=== PATIENT | female | born 2005 | race African-American/Black ===

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

== ENCOUNTER 2023-05-25 14:05 | Outpatient (AMB) | payer BC, SELFPAY ==
[2023-05-25 14:10] VITALS: BP 110/62; PULSE 86; TEMP 36.8; O2SAT 99; BMI 22.3
--- NOTE | 2023-05-25 14:10 | AM.OFFWIN_ITS ---
Intake Vital Signs 05/25/23 14:10 Height 5 ft 4 in Weight 130 lb BMI 22.3 BP 110/62 Blood Pressure Location Rt brachial Position Sitting Pulse 86 Pulse Source Pulse Oximeter Temp 98.3 F Temp Source Temporal Artery Scan Pulse Oximetry (%) 99 Intake Visit Reasons: EP, yellow color in white part of both eyes Intake Note: pt is here for c/o yellow color in white part of eyes, denies vision issues Patient Tobacco Use Status: Never used Tobacco Allergies amoxicillin Allergy (Mild, Verified 05/25/23 14:12) Rash azithromycin Allergy (Mild, Verified 05/25/23 14:13) Abdominal Pain Penicillins Allergy (Mild, Verified 05/25/23 14:12) Rash Do you need a note to return to daycare/school/sports/work: Yes HPI EP, yellow color in white part of both eyes HPI Details 17-[facility] reports yellowish discolored spots in the whites of her eyes. She noticed this yesterday. Denies any eye pain, vision changes, or photophobia. She does wear glasses. Denies any injuries to eyes. Denies any belly pain or abdominal injury. Denies any recent travel. [facility] Social History Patient Tobacco Use Status: Never used Tobacco Review of Systems Const All systems reviewed & are unremarkable except as noted in HPI and below Physical Exam Vital Signs: Last Vital Signs Temp 98.3 F 05/25/23 14:10 Pulse 86 05/25/23 14:10 BP 110/62 05/25/23 14:10 Pulse Ox 99 05/25/23 14:10 BMI result Body Mass Index 22.3 Const General: cooperative, healthy appearing, comfortable and no acute distress HEENT Head: Yes normal to inspection Ears: hearing grossly normal bilaterally Face and sinus: Yes normal facial exam Eyes Alignment and Position: alignment normal and position normal Periorbital: periorbital findings normal Eyelids: Yes eyelids normal Conjunctivae: conjunctivae normal Sclerae: sclerae normal Pupils: Equal, round and reactive pupils present and Pupil accommodation reflex normal EOM: EOMs intact bilaterally Direct Ophthalmoscopy: normal light reflex and no photophobia Neck Neck: Yes no lymphadenopathy Resp Effort & Inspection: normal respiratory effort Skin General skin exam: no rashes or lesions noted, elasticity normal and turgor normal Neuro Cranial nerves: Yes Equal, round and reactive pupils present Extrem General: Yes capillary refill normal and Yes no clubbing, cyanosis or edema Psych Appearance: grossly normal Mental Status: mental status grossly normal Speech and movement: Normal speech and movement present Assessment & Plan Assessment & Plan (1) Discoloration of conjunctiva: Code(s): H11.139 - Conjunctival pigmentations, unspecified eye Plan: Patient reports recent history of yellowish spots on eyes, which sound consistent with pterygium vs pinguecula. I cannot identify any abnormalities on exam today. Eye exam is normal. Patient did show me pictures on her phone and I could see small discoloration she was speaking about. No pain or vision changes. I reassured her of my findings and if this is in fact a pterygium/pinguecula, that she can use lubricating drops, and try to avoid UV light. If she develops any recurrence/worsening of these, or if she develops any eye pain or vision changes, she should return to the clinic for evaluation or follow-up with rig operator. She agrees to plan. Coding Level of Care Code Est Pt Level 3 (31561) Diagnoses Discoloration of conjunctiva H11.139
== END 2023-05-25 15:00 | disposition home or self-care (01) ==
PROVIDERS: Visit Provider Nurse Practitioner Family
DX: H11.139 Conjunctival pigmentations, unspecified eye (principal)
CPT/HCPCS: 99213

== ENCOUNTER 2023-06-03 11:35 | Outpatient (AMB) | payer BC, SELFPAY ==
--- NOTE | 2023-06-03 11:39 | MHC.OFFWIV ---
Intake Vital Signs 06/03/23 11:42 Height 5 ft 4 in Weight 132 lb BMI 22.7 BP 104/60 Blood Pressure Location Rt brachial Position Sitting Pulse 96 Pulse Source Pulse Oximeter Temp 98.9 F Temp Source Oral Pulse Oximetry (%) 98 Oxygen Delivery Method Room Air Intake Visit Reasons: EP Cough, congestion Intake Note: Patient here because she would like to get tested for covid. she states she was exposed to a friend that had covid last week and is now having some sx such as congestion, hard to swallow, headaches and fatigue which have been present for about 2 days. Patient Tobacco Use Status: Never used Tobacco Allergies amoxicillin Allergy (Mild, Verified 06/03/23 11:44) Rash azithromycin Allergy (Mild, Verified 06/03/23 11:44) Abdominal Pain Penicillins Allergy (Mild, Verified 06/03/23 11:44) Rash Do you need a note to return to daycare/school/sports/work: No PFSH Social History Patient Tobacco Use Status: Never used Tobacco Smoked in Last 30 Days: No Use of substances other than those prescribed or required for medical reasons: No Advance Directives: No Advance Directives Information Provided: No Patient : No Physical Exam Vital Signs: Last Vital Signs Temp 98.9 F 06/03/23 11:42 Pulse 96 06/03/23 11:42 BP 104/60 06/03/23 11:42 Pulse Ox 98 06/03/23 11:42 Oxygen Delivery Method Room Air 06/03/23 11:42 BMI result Body Mass Index 22.7 Assessment & Plan Assessment & Plan Orders: Orders BinaxNOW Covid-19 Ag 06/03/23 Z20.822 - Contact with and (suspected) exposure to COVID-19 Coding Level of Care Code Est Pt Level 1 (59662)
[2023-06-03 11:42] VITALS: BP 104/60; PULSE 96; TEMP 37.2; O2SAT 98; BMI 22.7
--- NOTE | 2023-06-03 11:55 | AM.OFFWIN_ITS ---
Intake Vital Signs 06/03/23 11:42 Height 5 ft 4 in Weight 132 lb BMI 22.7 BP 104/60 Blood Pressure Location Rt brachial Position Sitting Pulse 96 Pulse Source Pulse Oximeter Temp 98.9 F Temp Source Oral Pulse Oximetry (%) 98 Oxygen Delivery Method Room Air Intake Visit Reasons: EP Cough, congestion Patient Tobacco Use Status: Never used Tobacco Allergies amoxicillin Allergy (Mild, Verified 06/03/23 11:44) Rash azithromycin Allergy (Mild, Verified 06/03/23 11:44) Abdominal Pain Penicillins Allergy (Mild, Verified 06/03/23 11:44) Rash HPI HPI Comments History of Present Illness0 Details This is a 17-year-old female with no stated past medical history who is a sophomore at [employer] presenting requesting testing for COVID- 19. Patient states that she has had sinus congestion, fatigue and headache for the past 24 hours and had exposure last week to another individual who is positive for COVID-19. Patient has not taken any medication for treatment of her symptoms and has not taken a test for COVID-19 [facility] Social History Patient Tobacco Use Status: Never used Tobacco Review of Systems Const All systems reviewed & are unremarkable except as noted in HPI and below Denies body aches, Denies chills, Reports fatigue, Reports fever(s) (no documented fever, feel warm ) and Reports malaise Eyes Reports as per HPI ENT Reports as per HPI Card Reports as per HPI Resp Reports as per HPI Neuro Reports no additional complaints Endo Reports fatigue Physical Exam Vital Signs: Last Vital Signs Temp 98.9 F 06/03/23 11:42 Pulse 96 06/03/23 11:42 BP 104/60 06/03/23 11:42 Pulse Ox 98 06/03/23 11:42 Oxygen Delivery Method Room Air 06/03/23 11:42 BMI result Body Mass Index 22.7 Const General: cooperative, healthy appearing, comfortable, no acute distress and well developed; No anxious Nutritional Appearance: average body habitus Orientation/consciousness: patient oriented x3 Limitations: no limitations HEENT Head: Yes normal to inspection Ears: hearing grossly normal bilaterally, external ears normal and TM's normal bilaterally General nose exam: Normal external nose present Face and sinus: Yes normal facial exam Mouth: Normal oral and palatal mucosa present, oropharynx normal and moist mucous membranes Teeth and gingiva: dentition normal and gingiva normal Throat: Yes posterior oropharynx normal ( There is no edema, exudates or erythema of the posterior oropharynx.) Eyes General: appearance normal, both eyes and all related structures Conjunctivae: conjunctivae normal EOM: EOMs intact bilaterally Resp Effort & Inspection: normal respiratory effort, able to speak in complete sentences, no cough and no respiratory distress Auscultation: clear to auscultation bilaterally Cardio Rate: regular rate Rhythm: regular rhythm Skin General skin exam: no rashes or lesions noted Neuro General: patient oriented x3 Cognition (Neuro): normal cognition Psych Appearance: grossly normal Mental Status: mental status grossly normal Insight: Good insight present (Psych) Judgement: Good judgement present (Psych) Assessment & Plan Assessment & Plan (1) Exposure to COVID-19 virus: Code(s): Z20.822 - Contact with and (suspected) exposure to COVID-19 (2) Upper respiratory tract infection: Code(s): J06.9 - Acute upper respiratory infection, unspecified Plan COVID testing initiated today. Orders: Orders BinaxNOW Covid-19 Ag Today Z20.822 - Contact with and (suspected) exposure to COVID-19 Patient Instructions: Patient instructed to use ibuprofen or Tylenol for her symptoms as needed and stay very well hydrated with water. Patient will self isolate until the results of her testing for COVID-19 are available. 12:54 p.m. voicemail left with the patient regarding negative testing. Coding Level of Care Code New Pt Level 3 (27655) Diagnoses Exposure to COVID-19 virus Z20.822 Upper respiratory tract infection J06.9 Time Spent (min) 15
== END 2023-06-03 13:03 | disposition home or self-care (01) ==
PROVIDERS: Visit Provider Physician Assistant
DX: Z20.822 Contact with and (suspected) exposure to COVID-19 (principal); J06.9 Acute upper respiratory infection, unspecified
CPT/HCPCS: 99203

== ENCOUNTER 2023-06-03 12:01 | Outpatient (REF) | payer BC, SELFPAY ==
[2023-06-03 12:28] LABS: Binax Internal Control QC Valid; Binax Now Covid-19 Ag Negative (Negative); Binax Performed by: HO.BONILM
== END 2023-06-03 12:02 | disposition home or self-care (01) ==
LOC: HO.HMGCLDS 12:01
PROVIDERS: Visit Provider Physician Assistant
DX: Z20.822 Contact with and (suspected) exposure to COVID-19 (principal)
CPT/HCPCS: 87811; C9803

== ENCOUNTER 2023-06-05 22:13 | Emergency (ER) | payer BC, SELFPAY ==
[2023-06-05 22:25] VITALS: BP 140/94; PULSE 85; RESP 17; TEMP 37.1; O2SAT 100; BMI 22.4
[2023-06-05 22:35] VITALS: BP 125/82; PULSE 99; O2SAT 99
[2023-06-05 23:28] LABS: COVID-19 Test Negative (Negative); IDNOW Serial# 08D9AD1C; IDNOW Serial# BCCEAD1C; Influenza A Negative (Negative); Influenza B2 Negative (Negative)
--- OUTSIDE RECORDS SUMMARY | 2023-06-06 00:21 | XMS_ITS | Patient Health Record ---
Author Name Unknown Organization [facility] Address [address] [place] [address] Support Name Relationship Address Phone Farzana Espino Guarantor Unknown [phone] REASON FOR REFERRAL No Information SOCIAL HISTORY Tobacco Use: Social History Observation Description Date Smoking Status WARNING: Information temporarily unavailable Sex Assigned At : Social History Observation Description Sex Assigned At Unknown Tobacco Use/Smoking Question Answer Notes Are you a nonsmoker PLAN OF TREATMENT Pending Test Test Name Order Date *SARS-CoV-2 COVID-19 PCR 10/20/2020 Insurance Providers Payer Name Payer Address Payer Phone Subscriber Number Group Number Insured Name Patient Relationship to Insured Coverage Start Date Coverage End Date [employer] [address] [place] [address] [id number] Farzana Espino Self - patient is the insured
--- NOTE | 2023-06-06 00:23 | ED.GENADULT ---
HPI - General Adult General Chief complaint: General Medical Stated complaint: weakness,n+v Time Seen by Provider: 06/06/23 00:23 Source: patient Mode of arrival: ambulatory Limitations: no limitations History of Present Illness HPI narrative: Patient 17-year-old female presenting to the emergency department complaining of a sore throat and fatigue since . States that she felt somewhat better on Tuesday, then today developed nausea and vomiting. Also complains of headaches. Denies headache worst at onset, denies worst headache of life. Denies blurred vision, double vision or other visual changes. Denies abdominal pain. Denies diarrhea or constipation. Denies fevers. Denies cough, chest pain, or shortness of breath. MD complaint: Sore throat, nausea, vomiting Onset (ago): day(s) Severity: severe Quality: burning Pain Consistency: constant Relieving factors: none Exacerbating factors: none Associated symptoms: nausea/vomiting Treatments prior to arrival: NSAID Related Data Home Medications Medication Instructions Recorded Confirmed norethindrone 1 mg-ethinyl 1 tab PO DAILY 05/25/23 estradiol 10 mcg (24)-iron 10 mcg(2) tablet (Lo Loestrin Fe) Previous Rx's Medication Instructions Recorded lidocaine HCl 2 % mucosal solution 1 appl mucous membrane Q6-8H PRN 06/06/23 (Lidocaine Viscous) mouth pain #100 mL ondansetron 4 mg disintegrating 4 mg PO Q8H PRN nausea and 06/06/23 tablet vomiting #10 tabs prednisone 20 mg tablet 40 mg (2 x 20 mg) PO DAILY #10 tabs 06/06/23 Allergies Allergy/AdvReac Type Severity Reaction Status Date / Time amoxicillin Allergy Mild Rash Verified 06/03/23 11:44 azithromycin Allergy Mild Abdominal Verified 06/03/23 11:44 Pain Penicillins Allergy Mild Rash Verified 06/03/23 11:44 Review of Systems Review of Systems: As per HPI. Yes all other systems are reviewed and are negative Constitutional: Constitutional: Reports as per HPI [facility] Social History Social History Patient Tobacco Use Status: Never used Tobacco Smoked in Last 30 Days: No Use of substances other than those prescribed or required for medical reasons: No Advance Directives: No Advance Directives Information Provided: No Patient : No Physical Exam ED Vital Signs: Vital Signs - 24 hr 06/05/23 22:25 06/06/23 01:01 Temperature 98.8 F 98.2 F Pulse Rate 85 94 Respiratory Rate 17 18 Blood Pressure 140/94 H 132/96 H Pulse Oximetry 100 99 Oxygen Delivery Method Room Air Room Air BMI result Body Mass Index 22.4 Vital signs have been reviewed and appear to be correct. Blood pressure mildly elevated. Heart rate normal. Respiratory rate normal. Temperature normal. Oxygen saturation normal. Const General: cooperative, healthy appearing and no acute distress Orientation/consciousness: oriented to person, oriented to place, oriented to time and patient oriented x3 Limitations: no limitations HENMT Head: Yes normocephalic and Yes atraumatic Ears: external ears normal General nose exam: Normal external nose present Face and sinus: Yes face symmetric Mouth: Normal oral and palatal mucosa present, oropharynx normal and moist mucous membranes Throat: Yes tonsils normal, Yes uvula midline, No peritonsillar mass, Yes posterior oropharynx abnormal (Positive erythema, no edema or exudate), No uvular edema and Yes cobblestoning Eyes Pupils: Equal, round and reactive pupils present Neck Neck: Yes normal visual inspection and Yes supple Lymphatic: no lymphadenopathy noted Resp Effort & Inspection: normal respiratory effort and able to speak in complete sentences Auscultation: clear to auscultation bilaterally Cardio Rate: regular rate Rhythm: regular rhythm Heart sounds: S1 normal heart sound present and S2 normal heart sound present GI Inspection: Yes normal to inspection Palpation (GI): Soft to palpation, nontender, no guarding and No Rebound tenderness present Auscultation: normoactive bowel sounds General: Yes no CVA tenderness Back/Spine/Pelvis Back: no CVA tenderness Skin General skin exam: elasticity normal and turgor normal Neuro General: oriented to person, oriented to place, oriented to time, patient oriented x3, moves all extremities, no focal motor deficits and CN's II-XI intact bilaterally Cranial nerves: Yes Equal, round and reactive pupils present Cognition (Neuro): normal cognition Extrem General: Yes full ROM, Yes no pedal edema and Yes no calf tenderness Psych Mental Status: mental status grossly normal Affect: normal affect Thought process: Normal thought process present Medical Decision Making Medical Decision Making MDM Narrative: Patient 17-year-old female presenting to the emergency department complaining of a sore throat and fatigue since . On exam patient is awake, A+Ox3, VS WNL, afebrile, nontoxic-appearing, normal neurological exam without focal deficits, physical exam findings as above. Given reported symptoms and physical exam findings, initial differential includes strep pharyngitis, COVID, flu, other viral illness. Also considered mono, but patient has only been symptomatic for 4 days so testing could result in false negative. Swabs for Covid, flu, and strep all negative. Patient updated on results. Discussed with patient that symptoms are likely viral and should resolve on their own with time and rest. Advised patient that if symptoms persist for 7-10 days, she could be tested for mono at that time. Will prescribe short course of steroids for throat and well as lidocaine to swish and spit. Will also prescribe ondansetron as needed. Return precautions discussed at bedside. Instructed patient to follow-up with PCP this week. Patient verbalized understanding of and agreement with plan. Differential Diagnosis Differential Diagnoses: The differential diagnosis associated with the presentation includes As per [facility]. Lab Data [facility] Lab Attestation statement: I reviewed the patient's lab results. As per [facility]. Labs: Lab Results 06/05/23 06/06/23 Range/Units 23:07 00:33 COVID-19 (TASHA) Negative (Negative) COVID-19 Clin Com See Note Influenza Type A (NACHO) Negative (Negative) Influenza Type B (NACHO) Negative (Negative) Influenza A & B Note See Note S. pyogenes GrpA NACHO Negative (Negative) External Record Review External record reviewed: Inpatient record, Office record and Outpatient record Prescription Management I considered prescription management with: Pain Medication and Other Discharge Plan Discharge Clinical Impression: Acute viral pharyngitis Nausea & vomiting Qualifiers: Vomiting type: unspecified Qualified Code(s): R11.2 - Nausea with vomiting, unspecified Patient Disposition: Home, Self-Care Instructions: Pharyngitis (ED), Acute Nausea and Vomiting (ED) Additional Instructions: You were evaluated in the emergency department today for a sore throat. Your COVID, flu, and strep swabs were all negative. Your symptoms are likely related to a viral infection which will resolve on its own with time and rest. Be sure to drink adequate fluids. You can use Tylenol and ibuprofen per package directions as needed for discomfort. You can also gargle with warm salt water several times daily. Follow-up with your primary care provider this week. Return to the emergency department if you develop difficulty swallowing, worsening pain, shortness of breath, are unable to swallow your saliva, or any other concerning symptoms. Prescriptions: New prednisone 20 mg tablet 40 mg PO DAILY Qty: 10 0RF lidocaine HCl [Lidocaine Viscous] 2 % solution 1 appl mucous membrane Q6-8H PRN (Reason: mouth pain) Qty: 100 0RF Rx Instructions: Swish/gargle 5mL and spit out for sore throat ondansetron 4 mg tablet,disintegrating 4 mg PO Q8H PRN (Reason: nausea and vomiting) Qty: 10 0RF No Action Lo Loestrin Fe 1 mg-10 mcg (24)/10 mcg (2) tablet 1 tab PO DAILY
[2023-06-06 00:56] LABS: IDNOW Serial# 08D9AD1C; Strep A Nucleic Acid Negative (Negative)
[2023-06-06 01:01] VITALS: BP 132/96; PULSE 94; RESP 18; TEMP 36.8; O2SAT 99
== END 2023-06-06 01:32 | disposition home or self-care (01) ==
PROVIDERS: Registered Nurse Emergency; Emergency Provider Emergency Medicine
DX: J02.9 Acute pharyngitis, unspecified (principal); R53.1 Weakness; R11.2 Nausea with vomiting, unspecified; Z20.822 Contact with and (suspected) exposure to COVID-19; Z20.828 Contact with and (suspected) exposure to other viral communicable diseases
CPT/HCPCS: 87502; 87635; 87651; 99283; 99284

== ENCOUNTER 2023-11-15 01:32 | Emergency (ER) | payer BC, SELFPAY ==
[2023-11-15 01:36] VITALS: BP 132/87; PULSE 123; O2SAT 98
[2023-11-15 01:55] VITALS: BP 127/84; PULSE 121; RESP 16; TEMP 37.4; O2SAT 100; BMI 23.2
[2023-11-15 02:22] LABS: MANUAL DIFF FLAG NO
[2023-11-15 02:23] LABS: Basophils Percent Auto 0.3 % (0-2); Hematocrit 38.4 % (37.0-47.0); Hemoglobin 12.4 g/dl (12.0-16.0); Imm Gran Abs Auto 0.01 X10*3/uL (0.00-0.03); Imm Gran Pct Auto 0.1 % (0.0-0.4); Lymphocytes Absolute Auto 0.5 X10*3/uL (1.2-4.9); Lymphocytes Percent Auto 7.2 % (20-40); Mean Corpuscular HGB Conc 32.3 g/dl (31.0-35.0); Mean Corpuscular Hemoglobin 26.6 pg (27.0-33.0); Mean Corpuscular Volume 82.2 fL (80.0-98.0); Mean Platelet Volume 9.5 fL (9.4-12.3); Monocytes Absolute Auto 0.6 X10*3/uL (0.1-1.2); Monocytes Percent Auto 8.1 % (2-11); Neutrophils Absolute Auto 6.3 x10*3/uL (2.0-8.3); Neutrophils Percent Auto 84.3 % (45-73); Platelet Count 207 X10*3/uL (160-400); Red Blood Count 4.67 X10*6/uL (4.20-5.50); Red Cell Distribution Width 12.8 % (11.0-16.0); White Blood Count 7.5 X10*3/uL (4.8-10.8)
[2023-11-15 02:38] LABS: Alanine Aminotransferase 25 U/L (0-31); Alkaline Phosphatase 46 U/L (39-117); Anion Gap 12 (12-20); Aspartate Amino Transferase 29 U/L (5-31); Bilirubin Total 0.2 mg/dL (0.0-1.0); Blood Urea Nitrogen 7 mg/dL (9-16); Calcium 9.2 mg/dL (8.4-10.2); Carbon Dioxide 23 mmol/L (22-29); Chloride 108 mmol/L (96-108); Creatinine Clr Calc Pharmacy 106.3; Estimated Glomerular Filt Rate > 60; Glucose Random 109 mg/dL (60-115); Lipase 9 U/L (8-78); Potassium 3.5 mmol/L (3.3-5.1); Sodium 139 mmol/L (135-145); Total Protein 7.3 g/dL (6.5-8.0)
[2023-11-15 03:00] LABS: Influenza A PCR POSITIVE (Negative); Influenza B PCR NEGATIVE (Negative); Resp Syncy Virus RNA Qual PCR NEGATIVE (Negative); SARS COV2 PCR INHOUSE NEGATIVE (Negative)
[2023-11-15 03:43] LABS: Appearance Urine Clear; Color Urine Yellow; Glucose Urine UA Negative (Negative); Leukocyte Esterase Urine Trace (Negative); Nitrite Urine Negative (Negative); PH >= 9.0 (5.0-9.0); Specific Gravity - Urine >= 1.030 (1.005-1.025); UMIC TRIGGER UACC YES; Urine Blood Negative (Negative); Urine Ketones >=160 mg/dL (Negative); Urine Protein 30 (1+) mg/dL (Neg-Trace)
[2023-11-15 03:45] LABS: Bacteria Urine Trace (None Seen); Hyaline Casts Urine 0-2 /LPF (0-2); RBC Urine 0-2 /HPF (0-2); UPreg QC Valid YES; Urine Pregnancy NEGATIVE (NEGATIVE); WBC Urine 0-5 /HPF (0-5)
--- NOTE | 2023-11-15 04:27 | ED_ITS ---
HPI - Nausea/Vomiting/Diarrhea General Chief complaint: Nausea/Vomiting/Diarrhea Stated complaint: NAUSEA AND VOMITING Time Seen by Provider: 11/15/23 03:51 Source: patient Mode of arrival: ambulatory History of Present Illness HPI Narrative: 18-year-old female without significant past medical history presents with cough, nasal congestion, fevers, body aches and also has a positive sick contact. Patient then also developed nausea and vomiting this morning but it has since resolved in patient states that she is tolerating oral intake at this time Related Data Home Medications Medication Instructions Recorded Confirmed norethindrone 1 mg-ethinyl 1 tab PO DAILY 05/25/23 estradiol 10 mcg (24)-iron 10 mcg(2) tablet (Lo Loestrin Fe) Previous Rx's Medication Instructions Recorded lidocaine HCl 2 % mucosal solution 1 appl mucous membrane Q6-8H PRN 06/06/23 (Lidocaine Viscous) mouth pain #100 mL ondansetron 4 mg disintegrating 4 mg PO Q8H PRN nausea and 06/06/23 tablet vomiting #10 tabs prednisone 20 mg tablet 40 mg (2 x 20 mg) PO DAILY #10 tabs 06/06/23 oseltamivir 75 mg capsule (Tamiflu) 75 mg PO BID 5 days #10 caps 11/15/23 Allergies Allergy/AdvReac Type Severity Reaction Status Date / Time amoxicillin Allergy Mild Rash Verified 11/15/23 01:59 azithromycin Allergy Mild Abdominal Verified 11/15/23 01:59 Pain Penicillins Allergy Mild Rash Verified 11/15/23 01:59 Review of Systems 2 Review of Systems: Pertinent positives and negatives as stated in HPI PMFSH Past Medical History Source: nursing notes reviewed Social History Social History Patient Tobacco Use Status: Never used Tobacco Advance Directives: No Advance Directives Information Provided: No Physical Exam 2 Vital Signs: Vital Signs: Last Vital Signs Temp 99.4 F 11/15/23 01:55 Pulse 121 H 11/15/23 01:55 Resp 16 11/15/23 01:55 BP 127/84 11/15/23 01:55 Pulse Ox 100 11/15/23 01:55 O2 Del Method Room Air 11/15/23 01:55 BMI result Body Mass Index 23.2 VITAL SIGNS: Reviewed. GENERAL: Well developed, well nourished, in no acute distress. HEAD: Normocephalic/atraumatic EYES: PERRLA, EOMI EARS: Ext canals without abnormality, TMs non-bulging and non-erythematous NOSE: Nares patent bilateral OROPHARYNX: no oral lesions noted, posterior pharynx clear and non-erythematous without noted tonsillar enlargement/erythema/exudates NECK: Supple, no adenopathy LUNGS: Normal breath sounds. No adventitious sounds or accessory muscle use. SpO2<100> CARDIOVASCULAR: Regular rate and rhythm without noted murmurs ABDOMEN: Soft, non-tender, non-distended with bowel sounds. MUSCULOSKELETAL: No tenderness, deformities, or effusions noted on gross inspection. EXTREMITIES: No cyanosis, clubbing or edema. SKIN: Inspection of the skin reveals no rashes NEUROLOGIC: Alert and oriented x 4. Strength and sensation to light touch were grossly intact x 4. Medical Decision Making Medical Decision Making [facility] Narrative: 18-year-old female with history and clinical presentation, DDX: Viral illness, , UTI Reviewed all investigations and hematologic indices are negative for leukocytosis/anemia/thrombocytopenia. Chemistry indices are negative for ANASTASIIA/electrolyte or liver enzyme derangements. Urinalysis is negative UTI or hematuria and urine is negative. Viral testing is positive for influenza A and patient will be started on Tylenol/ibuprofen/Tamiflu. She has no longer nauseous and vomiting but will be discharged with a script for antinausea medication. Differential Diagnosis Differential Diagnoses: The differential diagnosis associated with the presentation includes Please see the discussion above Admission/Observation Consideration of admission/observation: Escalation of care including admission/observation considered Please see the discussion above Lab Data [facility] Lab Attestation statement: I reviewed the patient's lab results. Please see the discussion above 11/15/23 02:15 11/15/23 02:15 Labs: Lab Results 11/15/23 11/15/23 Range/Units 02:15 03:38 WBC 7.5 (4.8-10.8) X10*3/uL RBC 4.67 (4.20-5.50) X10*6/uL Hgb 12.4 (12.0-16.0) g/dl Hct 38.4 (37.0-47.0) % MCV 82.2 (80.0-98.0) fL MCH 26.6 L (27.0-33.0) pg MCHC 32.3 (31.0-35.0) g/dl RDW 12.8 (11.0-16.0) % Plt Count 207 (160-400) X10*3/uL MPV 9.5 (9.4-12.3) fL Immature Gran % (Auto) 0.1 (0.0-0.4) % Neut % (Auto) 84.3 H (45-73) % Lymph % (Auto) 7.2 L (20-40) % [place] % (Auto) 8.1 (2-11) % Eos % (Auto) 0.0 (0-4) % Baso % (Auto) 0.3 (0-2) % Lymph # (Auto) 0.5 L (1.2-4.9) X10*3/uL [place] # (Auto) 0.6 (0.1-1.2) X10*3/uL Eos # (Auto) 0.0 (0.0-0.4) X10*3/uL Baso # (Auto) 0.0 (0.0-0.2) X10*3/uL Abs Immat Gran (auto) 0.01 (0.00-0.03) X10*3/uL Absolute Neuts (auto) 6.3 (2.0-8.3) x10*3/uL Absolute Nucleated RBC 0.000 (0.0-0.012) X10*3/uL Nucleated RBC % (auto) 0.0 (0.0-0.2) /100WBC Sodium 139 (135-145) mmol/L Potassium 3.5 (3.3-5.1) mmol/L Chloride 108 (96-108) mmol/L Carbon Dioxide 23 (22-29) mmol/L Anion Gap 12 (12-20) BUN 7 L (9-16) mg/dL Creatinine 0.76 (0.5-1.4) mg/dL Estim Creat Clear Calc 106.3 Estimated GFR > 60 Random Glucose 109 (60-115) mg/dL Calcium 9.2 (8.4-10.2) mg/dL Total Bilirubin 0.2 (0.0-1.0) mg/dL AST 29 (5-31) U/L ALT 25 (0-31) U/L Alkaline Phosphatase 46 (39-117) U/L Total Protein 7.3 (6.5-8.0) g/dL Albumin 4.0 (3.5-5.0) g/dL Lipase 9 (8-78) U/L Urine Color Yellow Urine Appearance Clear Urine pH >= 9.0 (5.0-9.0) Ur Specific [place] >= 1.030 H (1.005-1.025) Urine Protein 30 (1+) H (Neg-Trace) mg/dL Urine Glucose (UA) Negative (Negative) mg/dL Urine Ketones >=160 (Negative) mg/dL Urine Blood Negative (Negative) Urine Nitrite Negative (Negative) Ur Leukocyte Esterase Trace H (Negative) Urine RBC 0-2 (0-2) /HPF Urine WBC 0-5 (0-5) /HPF Ur Squamous Epith Cells 3-5 (0-2) /HPF Urine Bacteria Trace (None Seen) Hyaline Casts 0-2 (0-2) /LPF Urine Test NEGATIVE (NEGATIVE) Influenza Type A (PCR) POSITIVE A (Negative) Influenza Type B (PCR) NEGATIVE (Negative) RSV RNA Qual (PCR) NEGATIVE (Negative) SARS-CoV-2 RNA (RT-PCR) NEGATIVE (Negative) Discharge Plan Discharge Clinical Impression: Viral syndrome, Influenza A Patient Disposition: Home, Self-Care Instructions: Influenza (ED), Viral Syndrome (ED) Additional Instructions: 1. Complete the course of medication that is being prescribed to you for influenza a infection. 2. Recommend [id number] Tylenol/ibuprofen as needed for body aches/headache/temperatures greater than 100.4. 3. You are being discharged with a prescription for antinausea medication. Continue to stay well hydrated especially with water. Return to the ER for any worsening symptoms. Prescriptions: New oseltamivir [Tamiflu] 75 mg capsule 75 mg PO BID 5 Days Qty: 10 0RF No Action prednisone 20 mg tablet 40 mg PO DAILY Qty: 10 0RF lidocaine HCl [Lidocaine Viscous] 2 % solution 1 appl mucous membrane Q6-8H PRN (Reason: mouth pain) Qty: 100 0RF Rx Instructions: Swish/gargle 5mL and spit out for sore throat ondansetron 4 mg tablet,disintegrating 4 mg PO Q8H PRN (Reason: nausea and vomiting) Qty: 10 0RF Lo Loestrin Fe 1 mg-10 mcg (24)/10 mcg (2) tablet 1 tab PO DAILY
[2023-11-15 04:54] VITALS: BP 112/72; PULSE 121; RESP 16; TEMP 39.2; O2SAT 100
[2023-11-15] MEDS: Oseltamivir Phosphate 75 MG CAPSULE PO (04:56)
[2023-11-15] MEDS: Acetaminophen 325 MG TABLET 975 MG PO (04:56)
[2023-11-15] MEDS: Ibuprofen 400 MG TABLET PO (04:56)
== END 2023-11-15 05:10 | disposition home or self-care (01) ==
PROVIDERS: Emergency Provider Student in an Organized Health Care Education/Training Program
DX: J10.1 Influenza due to other identified influenza virus with other respiratory manifestations (principal); B34.9 Viral infection, unspecified; R11.2 Nausea with vomiting, unspecified; R05.9 Cough, unspecified; R09.81 Nasal congestion; Z11.52 Encounter for screening for COVID-19; Z20.822 Contact with and (suspected) exposure to COVID-19; Z79.899 Other long term (current) drug therapy
CPT/HCPCS: 0241U; 36415; 80053; 81001; 81025; 83690; 85025; 99283; 99284

== ENCOUNTER 2024-06-09 11:03 | Outpatient (REF) | payer BC, SELFPAY ==
[2024-06-09 18:06] LABS: Influenza A PCR NEGATIVE (Negative); Influenza B PCR NEGATIVE (Negative); Resp Syncy Virus RNA Qual PCR NEGATIVE (Negative); SARS COV2 PCR INHOUSE NEGATIVE (Negative)
== END 2024-06-09 11:04 | disposition home or self-care (01) ==
LOC: HO.LNP 11:03
PROVIDERS: Visit Provider Physician Assistant Medical
DX: J01.10 Acute frontal sinusitis, unspecified (principal); R09.89 Other specified symptoms and signs involving the circulatory and respiratory systems
CPT/HCPCS: 0241U

== ENCOUNTER 2024-06-09 11:03 | Outpatient (AMB) | payer BC, SELFPAY ==
[2024-06-09 11:06] VITALS: BP 120/72; PULSE 96; TEMP 36.8; O2SAT 98; BMI 21.6
--- NOTE | 2024-06-09 11:06 | AM.OFFWIN_ITS ---
Intake Vital Signs 06/09/24 11:06 Height 5 ft 5 in Weight 130 lb BMI 21.6 BP 120/72 Blood Pressure Location Lt brachial Position Sitting Pulse 96 Pulse Source Pulse Oximeter Temp 98.3 F Temp Source Oral Pulse Oximetry (%) 98 Oxygen Delivery Method Room Air Intake Visit Reasons: EP/Sinus? Intake Note: pt is here for possible sinus infection Patient Tobacco Use Status: Never used Tobacco Allergies amoxicillin Allergy (Mild, Verified 06/09/24 11:06) Rash azithromycin Allergy (Mild, Verified 06/09/24 11:06) Abdominal Pain Penicillins Allergy (Mild, Verified 06/09/24 11:06) Rash Do you need a note to return to daycare/school/sports/work: No HPI EP/Sinus? HPI Details Patient is a 18-year-old female comes to the walk-in clinic complaining of persistent nasal congestion for over 2 weeks, with increasing sinus pressure to her forehead. No report of eye pain or vision changes, purulent nasal discharge, fever or chills, myalgias or malaise, dizziness or vertigo, weakness, nausea vomiting or diarrhea, ear or hearing issues, sore throat or cough, abdominal pain or pelvic pain, urinary symptoms, chest pain or shortness of breath, or other significant associated symptoms. [facility] Social History Patient Tobacco Use Status: Never used Tobacco Review of Systems Const All systems reviewed & are unremarkable except as noted in HPI and below Physical Exam Vital Signs: Last Vital Signs Temp 98.3 F 06/09/24 11:06 Pulse 96 06/09/24 11:06 BP 120/72 06/09/24 11:06 Pulse Ox 98 06/09/24 11:06 Oxygen Delivery Method Room Air 06/09/24 11:06 BMI result Body Mass Index 21.6 Const General: cooperative, healthy appearing, comfortable, no acute distress, alert, awake, Physically active and well groomed; No anxious, diaphoretic, ill appearing, intoxicated appearing, poor hygiene or tired appearing Nutritional Appearance: average body habitus Orientation/consciousness: oriented to person Limitations: no limitations HEENT Head: Yes normal to inspection, Yes normocephalic and Yes atraumatic Ears: hearing grossly normal bilaterally, external ears normal, TM's normal bilaterally and EAC's normal General nose exam: Normal external nose present, Normal septum present, Abnormal mucous membranes and turbinates present and Nasal discharge present Face and sinus: Yes face symmetric, No ecchymosis, No erythema, No edema, No fluctuance, No maxillary instability, Yes sinus tenderness and Yes Facial tenderness on exam of face and sinuses Mouth: Normal oral and palatal mucosa present, lip normal and tongue normal Throat: Yes posterior oropharynx normal, No peritonsillar mass, No postnasal drainage, No uvular edema and No cobblestoning Eyes General: appearance normal, both eyes and all related structures Neck Neck: Yes normal visual inspection, Yes no lymphadenopathy, Yes trachea midline, Yes supple and No anterior neck swelling Resp Effort & Inspection: normal respiratory effort, able to speak in complete sentences, no audible wheezes, no cough, no grunting, not labored, no nasal flaring, no retractions and symmetric chest movement Auscultation: clear to auscultation bilaterally, no crackles, no rales, no rhonchi, no wheezes, lung sounds not diminished and No rub present Cardio Palpation: normal PMI Rate: regular rate Rhythm: regular rhythm Heart sounds: S1 normal heart sound present and S2 normal heart sound present Skin Other: Good color, warm and dry Neuro General: oriented to person Psych Appearance: grossly normal Mental Status: mental status grossly normal Speech and movement: Normal speech and movement present Affect: normal affect Attitude: cooperative Thought process: Normal thought process present Insight: Good insight present (Psych) Judgement: Good judgement present (Psych) Assessment & Plan Assessment & Plan (1) Sinusitis, acute frontal: Code(s): J01.10 - Acute frontal sinusitis, unspecified Qualifiers: Recurrence: not specified as recurrent Qualified Code(s): J01.10 - Acute frontal sinusitis, unspecified Plan Patient is a 18-year-old female 2 weeks in with upper respiratory infection symptoms, pending flu COVID and RSV results. At this point she complains of tenderness over the frontal sinus, and has persistent nasal congestion. As symptoms have persisted this long, I wrote her a course of doxycycline and she can take ibuprofen as needed for the inflammation and pain. She should monitor symptoms and follow up if they persist or worsen, and she knows to go to the emergency department with worrisome symptoms. Orders: Orders SARS-CoV2/FLU/RSV 06/09/24 R09.89 - Other specified symptoms and signs involving the circulatory and respiratory systems Medications: New ibuprofen 800 mg PO Q8H PRN 30 tabs 0RF pain doxycycline hyclate 100 mg PO BID 20 caps 0RF 10 days Coding Level of Care Code Est Pt Level 4 (81056) Diagnoses Acute frontal sinusitis, recurrence not specified J01.10 Recurrence: not specified as recurrent
== END 2024-06-09 12:11 | disposition home or self-care (01) ==
PROVIDERS: Visit Provider Physician Assistant Medical
DX: J01.10 Acute frontal sinusitis, unspecified (principal)

== ENCOUNTER 2025-06-06 12:15 | Outpatient (AMB) | payer BC, SELFPAY ==
[2025-06-06 12:22] VITALS: BP 108/70; PULSE 73; RESP 16; TEMP 36.9; O2SAT 100; BMI 22.3
--- NOTE | 2025-06-06 12:22 | AM.OFFWIN_ITS ---
Intake Vital Signs 06/06/25 12:22 Height 5 ft 5 in Weight 134 lb BMI 22.3 BP 108/70 Blood Pressure Location Rt brachial Position Sitting Respiration 16 Pulse 73 Pulse Source Pulse Oximeter Temp 98.4 F Temp Source Oral Pulse Oximetry (%) 100 Oxygen Delivery Method Room Air Intake Visit Reasons: EP Swollen tonsils? Patient Tobacco Use Status: Never used Tobacco Allergies amoxicillin Allergy (Mild, Verified 06/06/25 12:24) Rash azithromycin Allergy (Mild, Verified 06/06/25 12:24) Abdominal Pain Penicillins Allergy (Mild, Verified 06/06/25 12:24) Rash Medication List - Last Reconciled 06/06/25 by Viky Savage NP doxycycline hyclate 100 mg PO BID 10 days ibuprofen 800 mg PO Q8H PRN norethindrone-e.estradiol-iron 1 mg-10 mcg (24)/10 mcg (2) (Lo Loestrin Fe) 1 tab PO DAILY prednisone 20 mg PO DAILY HPI HPI Comments History of Present Illness Details 19 y/o Female patient who presents to [facility] walk in clinic with c/o Sore- throat and difficult swallowing for 3 days. Denies Fevers, chills, nausea and vomiting. Reports h/o recurrent Strep infections. [facility] Medical History (Updated 06/06/25 @ 12:52 by Viky Savage NP) Acute streptococcal pharyngitis Social History Patient Tobacco Use Status: Never used Tobacco Review of Systems Const All systems reviewed & are unremarkable except as noted in HPI and below Physical Exam Vital Signs: Last Vital Signs Temp 98.4 F 06/06/25 12:22 Pulse 73 06/06/25 12:22 Resp 16 06/06/25 12:22 BP 108/70 06/06/25 12:22 Pulse Ox 100 06/06/25 12:22 Oxygen Delivery Method Room Air 06/06/25 12:22 BMI result Body Mass Index 22.3 Const General: no acute distress Nutritional Appearance: well nourished Orientation/consciousness: patient oriented x3 HEENT Head: Yes normocephalic Ears: external ears normal and TM abnormal with fluid behind the TM bilateral General nose exam: Normal external nose present Face and sinus: Yes sinuses nontender Mouth: Abnormal oral and palatal mucosa present erythematous and white patches Throat: Yes uvula midline and Yes abnormal tonsil (Enlarged Tonsils +2 ) Resp Effort & Inspection: normal respiratory effort, able to speak in complete sentences and no cough Auscultation: clear to auscultation bilaterally, no crackles, no rales, no rhonchi and no wheezes Cardio Heart sounds: S1 normal heart sound present and S2 normal heart sound present Neuro General: patient oriented x3, gait normal and moves all extremities Psych Speech and movement: Normal speech and movement present Assessment & Plan Assessment & Plan (1) Acute streptococcal pharyngitis: Code(s): J02.0 - Streptococcal pharyngitis Plan: Ordered Resp Path Panel Tonsils with white exudate - enlarged +2 Ordered Doxy for 10 days. Ordered Prednisone OTC Cold and sinus remedies Acetaminophen for pain relief. Warm fluids with honey or [place]. Orders: Orders Resp Pathogen Panel - [facility] Today J06.9 - Acute upper respiratory infection, unspecified Medications: New prednisone 20 mg PO DAILY 5 tabs 0RF J02.0 - Streptococcal pharyngitis Refilled doxycycline hyclate 100 mg PO BID 20 caps 0RF 10 days J02.0 - Streptococcal pharyngitis Coding Level of Care Code Est Pt Level 4 (21681) Diagnoses Acute streptococcal pharyngitis J02.0 Time Spent (min) 20
--- NOTE | 2025-06-06 12:22 | MHC.PC.OV ---
Intake Visit Reasons: EP Swollen tonsils? Allergies amoxicillin Allergy (Mild, Verified 06/09/24 11:06) Rash azithromycin Allergy (Mild, Verified 06/09/24 11:06) Abdominal Pain Penicillins Allergy (Mild, Verified 06/09/24 11:06) Rash PFSH Social History Patient Tobacco Use Status: Never used Tobacco Physical exam (Primary Care) Tobacco/Smoking Status: Tobacco use Status Patient Tobacco Use Status Never used Tobacco 06/09/24 11:08 Coding
--- OUTSIDE RECORDS SUMMARY | 2025-06-06 13:51 | XMS_ITS | Patient Health Record ---
Author Organization Abel Duarte MD [facility] [place] Address [address] [place] [id number] Support Name Relationship Address Phone BAILEE PHAM Guarantor Unknown [phone] Reason For Referral No Information Plan Of Treatment No Information Insurance Providers Payer Name Payer Address Payer Phone Subscriber Number Group Number Insured Name Patient Relationship to Insured Coverage Start Date Coverage End Date [facility] [id number] [place] [phone] [id number] BAILEE PHAM Self - patient is the insured
== END 2025-06-06 13:11 | disposition home or self-care (01) ==
PROVIDERS: Visit Provider Nurse Practitioner Family
DX: J02.0 Streptococcal pharyngitis (principal); Z13.9 Encounter for screening, unspecified

== ENCOUNTER 2025-06-06 12:15 | Outpatient (REF) | payer BC, SELFPAY ==
[2025-06-07 10:09] LABS: Chlamydia pneumoniae PCR Not Detected (Not Detect.); Coronavirus 229E PCR Not Detected (Not Detect.); Coronavirus HKU1 PCR Not Detected (Not Detect.); Coronavirus NL63 PCR Not Detected (Not Detect.); Coronavirus OC43 PCR Not Detected (Not Detect.); Influenza A H1 PCR Not Detected (Not Detect.); Influenza A H1-2009 PCR Not Detected (Not Detect.); Influenza A H3 PCR Not Detected (Not Detect.); RSV PCR Not Detected (Not Detect.); Rhino/Enterovirus PCR Not Detected (Not Detect.); SARS-CoV-2 PCR Not Detected (Not Detect.)
== END 2025-06-06 12:16 | disposition home or self-care (01) ==
LOC: HO.LAB 12:15
PROVIDERS: Visit Provider Nurse Practitioner Family
DX: J02.0 Streptococcal pharyngitis (principal); R13.10 Dysphagia, unspecified
CPT/HCPCS: 87633; 87880

== ENCOUNTER 2025-06-24 13:48 | Outpatient (AMB) | payer BC, SELFPAY ==
[2025-06-24 14:03] VITALS: BP 112/64; PULSE 93; TEMP 36.9; O2SAT 97; BMI 22.7
--- NOTE | 2025-06-24 14:03 | MHC.OFFWIV ---
Intake Vital Signs 06/24/25 14:03 Height 5 ft 5 in Weight 136 lb 8 oz BMI 22.7 BP 112/64 Blood Pressure Location Lt brachial Position Sitting Pulse 93 Pulse Source Pulse Oximeter Temp 98.5 F Temp Source Oral Pulse Oximetry (%) 97 Oxygen Delivery Method Room Air Intake Visit Reasons: ep pain in tonsils [phone] Intake Note: Patient presents for pain & swelling in tonsils x2 weeks - denies sore throat. Patient Tobacco Use Status: Never used Tobacco Allergies amoxicillin Allergy (Mild, Verified 06/24/25 14:24) Rash azithromycin Allergy (Mild, Verified 06/24/25 14:24) Abdominal Pain Penicillins Allergy (Mild, Verified 06/24/25 14:24) Rash Do you need a note to return to daycare/school/sports/work: No HPI HPI Comments History of Present Illness Details History of Present Illness - The patient is a 19-year-old female presenting with recurrent pharyngitis and tonsillitis symptoms. - Initially presented two weeks ago with pharyngitis, treated with doxycycline and anti-inflammatory medication. - Partial adherence to antibiotics due to loss during travel, completing 8 of 10 days. - Symptoms recurred, including sore throat, headache, body aches, and neck pain. - Has pain when she swallows or turns her head. - Allergies to amoxicillin, penicillin, and azithromycin limit antibiotic options. - She is not a smoker - She is a college student. - She denies PAT, cough, congestion, CP, SOB, abd pain, n/v/d. Physical Exam General: Cooperative, healthy appearing, comfortable, no acute distress and well developed Orientation: Patient oriented x3 Limitations: Limited neck movement due to pain Head: Normal to inspection Ears: Hearing grossly normal bilaterally Nose: Normal external nose present Face and sinus: Normal facial exam Throat: Pharynx is pink. Uvula is midline, Tonsils are swollen, cryptic with exudates bilaterally. Eyes: Appearance normal, both eyes and all related structures Neck: FROM of the neck. Respiratory: Normal respiratory effort and able to speak in complete sentences. Clear to auscultation bilaterally Cardiovascular: Regular rate and rhythm. Normal S1 and S2 Skin: No rashes or lesions noted Patient was informed and verbally consented to the use of an ambient scribe for clinic note documentation during this visit. [facility] Medical History (Updated 06/06/25 @ 12:52 by Viky Savage NP) Acute streptococcal pharyngitis Social History Patient Tobacco Use Status: Never used Tobacco Review of Systems Const All systems reviewed & are unremarkable except as noted in HPI and below Physical Exam Vital Signs: Last Vital Signs Temp 98.5 F 06/24/25 14:03 Pulse 93 06/24/25 14:03 BP 112/64 06/24/25 14:03 Pulse Ox 97 06/24/25 14:03 Oxygen Delivery Method Room Air 06/24/25 14:03 BMI result Body Mass Index 22.7 Results AMB Rapid Strep AMB Rapid Strep Negative Last Edit by Adrianna Finley MA on 06/24/25 15:28 AMB Rapid [place] AMB Rapid [place] Negative Last Edit by Adrianna Finley MA on 06/24/25 15:34 Assessment & Plan Assessment & Plan (1) Sore throat: Code(s): J02.9 - Acute pharyngitis, unspecified (2) Enlarged tonsils: Code(s): J35.1 - Hypertrophy of tonsils Plan Most likely strep vs tonsillitis vs ASO carrier Rapid strep is negative mono was negative plan - Repeat strep test and initiate another round of antibiotics due to symptom recurrence. - will order a throat culture today - Consider ENT referral if symptoms persist post-treatment. - Perform monospot test to rule out mononucleosis. - diet as tolerated - tylenol or motrin as needed - follow up with PCP Orders: Orders AMB [place] Screen Today Z13.9 - Encounter for screening, unspecified Throat Culture Today J02.9 - Acute pharyngitis, unspecified AMB Rapid Strep Screen Today Z13.9 - Encounter for screening, unspecified Medications: New clindamycin HCl 300 mg (2 x 150 mg) PO Q8H 60 caps 0RF 10 days prednisone 40 mg (2 x 20 mg) PO DAILY 10 tabs 0RF 5 days Coding Level of Care Code Est Pt Level 3 (39583) Diagnoses Sore throat J02.9 Enlarged tonsils J35.1
== END 2025-06-24 15:49 | disposition home or self-care (01) ==
PROVIDERS: Visit Provider Physician Assistant Medical
DX: J02.9 Acute pharyngitis, unspecified (principal); J35.1 Hypertrophy of tonsils; Z13.9 Encounter for screening, unspecified

== ENCOUNTER 2025-06-24 13:48 | Outpatient (REF) | payer BC, SELFPAY | END 2025-06-24 13:49 | disposition home or self-care (01) | LOC: HO.LNP 13:48 | PROVIDERS: Visit Provider Physician Assistant Medical | DX: J35.1 Hypertrophy of tonsils (principal); J02.9 Acute pharyngitis, unspecified; Z13.89 Encounter for screening for other disorder | CPT/HCPCS: 87070; 87147; 87880 ==

== ENCOUNTER 2025-08-05 15:19 | Outpatient (AMB) | payer BC, SELFPAY ==
[2025-08-05 15:22] VITALS: BP 98/70; PULSE 70; TEMP 36.9; O2SAT 97; BMI 22.8
--- NOTE | 2025-08-05 15:22 | MHC.OFFWIV ---
Intake Vital Signs 08/05/25 15:22 Height 5 ft 5 in Weight 137 lb BMI 22.8 BP 98/70 Blood Pressure Location Lt brachial Position Sitting Pulse 70 Pulse Source Pulse Oximeter Temp 98.5 F Temp Source Oral Pulse Oximetry (%) 97 Oxygen Delivery Method Room Air Intake Visit Reasons: EP Possible sinus infection Intake Note: Patient returns c/o sinus infection - seen on 06/24 & was given abx which she completed but states it is persisting. Patient Tobacco Use Status: Never used Tobacco Allergies amoxicillin Allergy (Mild, Verified 08/05/25 15:24) Rash azithromycin Allergy (Mild, Verified 08/05/25 15:24) Abdominal Pain Penicillins Allergy (Mild, Verified 08/05/25 15:24) Rash Medication List - Last Reconciled 08/05/25 by Viky Savage NP norethindrone-e.estradiol-iron 1 mg-10 mcg (24)/10 mcg (2) (Lo Loestrin Fe) 1 tab PO DAILY Do you need a note to return to daycare/school/sports/work: No HPI HPI Comments History of Present Illness Details 19 y/o female patient presents to the walk-in clinic with complaints of sinus congestion/pressure and painful/difficult swallowing. Symptoms have been persistent for several weeks. She was evaluated twice previously (06/06 and 06/24) for similar complaints. Prior testing included SARS-CoV-2, rapid strep, and throat cultures ? all negative. She was treated with doxycycline x10 days, Clindamycin x5 days, and prednisone, with only minimal overall relief; prednisone provided the most significant temporary improvement. Denies fever, chills, cough, chest pain, shortness of breath, ear drainage, nausea, vomiting, or other systemic symptoms. 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 Symptoms began after moving into the dorm. She is originally from [place] with a PCP in [facility], and has been unable to follow up with ENT due to lack of a local PCP. No known sick contacts. No recent travel. [facility] Medical History (Updated 08/05/25 @ 15:57 by Viky Savage NP) Chronic sinusitis, unspecified Acute streptococcal pharyngitis Social History Patient Tobacco Use Status: Never used Tobacco Review of Systems Const All systems reviewed & are unremarkable except as noted in HPI and below Physical Exam Vital Signs: Last Vital Signs Temp 98.5 F 08/05/25 15:22 Pulse 70 08/05/25 15:22 BP 98/70 08/05/25 15:22 Pulse Ox 97 08/05/25 15:22 Oxygen Delivery Method Room Air 08/05/25 15:22 BMI result Body Mass Index 22.8 Const General: no acute distress Nutritional Appearance: well nourished Orientation/consciousness: patient oriented x3 HEENT Head: Yes normocephalic Ears: external ears normal and TM abnormal bulging bilateral and with fluid behind the TM bilateral General nose exam: Abnormal mucous membranes and turbinates present boggy and erythematous and Nasal discharge present Face and sinus: Yes sinus tenderness Mouth: moist mucous membranes Throat: Yes uvula midline and Yes abnormal tonsil (Enlarged Tonsils +3) Resp Effort & Inspection: normal respiratory effort Auscultation: clear to auscultation bilaterally Cardio Heart sounds: S1 normal heart sound present and S2 normal heart sound present Neuro General: patient oriented x3 Assessment & Plan Assessment & Plan (1) Chronic sinusitis, unspecified: Code(s): J32.9 - Chronic sinusitis, unspecified Plan: Chronic/recurrent sinus congestion and odynophagia ? symptoms persistent despite two antibiotic courses and recurrent negative infectious testing. Improved with steroids, raising suspicion for allergic rhinitis, environmental irritant sensitivity, or noninfectious inflammatory sinusitis. Dormitory exposure may be contributing (mold, dust mites, poor ventilation). Ordered intranasal corticosteroid, Flonase 2 sprays each nostril daily. Ordered Zrytec 10 mg BID Recommended saline nasal rinses 1?2? daily. Short course of oral prednisone 20 mg x 10 days. No further antibiotics indicated at this time. Discuss environmental contributors: recommend checking dorm room for visible mold, using HEPA-type air purifier if possible, and reducing dust triggers. Provide ENT referral ? advise contacting student health services for assistance with establishing a temporary local PCP/coordination of care. Educated on red flags (worsening pain, high fever, unilateral severe swelling, inability to swallow, difficulty breathing) and when to go to ED. Medications: New cetirizine (Zyrtec) 10 mg PO BID 90 tabs 2RF J32.9 - Chronic sinusitis, unspecified fluticasone furoate 27.5 mcg/actuation (Flonase Sensimist) into each nostril 2 sprays intranasal DAILY 27.3 mL 2RF J32.9 - Chronic sinusitis, unspecified prednisone 20 mg PO DAILY 10 tabs 0RF J32.9 - Chronic sinusitis, unspecified Coding Level of Care Code Est Pt Level 4 (75566) Diagnoses Chronic sinusitis, unspecified J32.9 Time Spent (min) 20
== END 2025-08-05 15:58 | disposition home or self-care (01) ==
PROVIDERS: Visit Provider Nurse Practitioner Family
DX: J32.9 Chronic sinusitis, unspecified (principal)